=== PATIENT | female | born 1950 ===

== ENCOUNTER 2017-03-31 12:53 | Outpatient (RCR) | payer MEDICARE ==
[2017-01-20 11:49] VITALS: BP 118/77
[2017-02-23 15:45] VITALS: BP 118/71
[~2017-03-31 12:53] MED LIST: OMALIZUMAB 150 MG SVD SQ ONE
[2017-03-31 12:57] VITALS: BP 117/85
== END 2017-04-19 ==
LOC: SPU 12:53
PROVIDERS: ATTEND Allergy & Immunology Allergy
DX: J45.50 Severe persistent asthma, uncomplicated (principal)
CPT/HCPCS: 96372; J2357

== ENCOUNTER 2017-06-20 13:00 | Outpatient (RCR) | payer MEDICARE ==
[2017-04-26 13:06] VITALS: BP 108/69
[2017-06-20] MEDS ORDERED: OMALIZUMAB 150 MG SVD SQ ONE ×3 (14:00)
[2017-06-20 14:07] VITALS: BP 106/67
[2017-07-21] MEDS ORDERED: OMALIZUMAB 150 MG SVD SQ ONE ×2 (10:10)
== END 2017-07-21 10:23 | disposition home or self-care (01) ==
LOC: SPU 13:00
PROVIDERS: ATTEND Allergy & Immunology Allergy
DX: J45.50 Severe persistent asthma, uncomplicated (principal)
CPT/HCPCS: 96372; J2357

== ENCOUNTER 2017-07-21 11:57 | Outpatient (RCR) | payer MEDICARE ==
[2017-07-21] MEDS ORDERED: OMALIZUMAB 150 MG SVD SQ ONE ×2 (12:10)
[2017-07-21 13:10] VITALS: BP 121/67
== END 2017-08-12 10:34 | disposition home or self-care (01) ==
LOC: SPU 11:57
PROVIDERS: ATTEND Allergy & Immunology Allergy
DX: J45.50 Severe persistent asthma, uncomplicated (principal)
CPT/HCPCS: 96372; J2357

== ENCOUNTER 2017-10-13 13:10 | Outpatient (RCR) | payer MEDICARE ==
[2017-08-17 12:33] VITALS: BP 112/96
[2017-09-22 10:25] VITALS: BP 101/79
[2017-10-13 13:15] VITALS: BP 102/67
== END 2017-11-15 ==
LOC: SPU 13:10
PROVIDERS: ATTEND Allergy & Immunology Allergy
DX: J45.50 Severe persistent asthma, uncomplicated (principal)
CPT/HCPCS: 96372; J2357

== ENCOUNTER 2018-01-25 10:11 | Outpatient (RCR) | payer MEDICARE ==
[2017-12-30 12:02] VITALS: BP 119/68
[2018-01-25 10:20] VITALS: BP 127/70
[2018-01-25] MEDS ORDERED: OMALIZUMAB 150 MG SVD SQ ONE ×3 (10:25→10:30)
[2018-03-02] MEDS ORDERED: OMALIZUMAB 150 MG SVD SQ ONE ×2 (10:30)
[2018-03-02 11:20] VITALS: BP 120/88
== END 2018-03-02 ==
LOC: SPU 10:11
PROVIDERS: ATTEND Allergy & Immunology Allergy
DX: J45.50 Severe persistent asthma, uncomplicated (principal)
CPT/HCPCS: 96372; J2357

== ENCOUNTER → 2018-03-02 | Outpatient (CLI) | payer MEDICARE ==
--- NOTE | 2018-03-02 16:13 | RADIOLOGY IMAGING REPORT ---
FACILITY: [facility] PATIENT NAME: Maria Guadalupe Azevedo : 1950 MR: [id number] V: [id number] EXAM DATE: ORDERING PHYSICIAN: ELSIE RUIZ TECHNOLOGIST: [place] [facility] [place] Patient: Maria Guadalupe Azevedo : 1950 Visit/Account:[id number] Date of Sevice: 03/02/2018 Exam type: HIPS BILATERAL History: Bilateral hip pain x6 months, right more than left Comparison: None. Findings: Two views of each hip were submitted. There is a sclerotic density projecting over the right femoral neck measuring 2.6 x 1.7 cm with slightly irregular margins. Although this could represent a bone i sland given the clinical history of right hip pain further evaluation with MR may be helpful. No chikis dence of acute fracture or dislocation involving either hip. No significant arthritic change identif ied involving the hip joints. Sclerotic changes are seen along the inferior third of both SI joints likely arthritic in nature IMPRESSION: 1. Atherosclerotic density projecting over the right femoral neck as described above with slightly i rregular margins. Although this could represent a bone island given the clinical history of right hi p pain further evaluation with MR may be helpful Report Dictated By: Latoya Guerrero MD at 03/02/2018 4:08 PM Report E-Signed By: Latoya Guerrero MD at 03/02/2018 4:09 PM WSN:[email or web address]
== END ==
LOC: RAD 14:38
PROVIDERS: ATTEND Family Medicine
DX: M25.551 Pain in right hip (principal); M25.552 Pain in left hip
CPT/HCPCS: 73522

== ENCOUNTER 2018-06-08 13:19 | Outpatient (RCR) | payer MEDICARE ==
[2018-03-31 13:00] VITALS: BP 100/67
[2018-05-02 11:38] VITALS: BP 109/74
[2018-06-08 13:29] VITALS: BP 115/76
== END 2018-06-29 ==
LOC: SPU 13:19
PROVIDERS: ATTEND Allergy & Immunology Allergy
DX: J45.50 Severe persistent asthma, uncomplicated (principal)
CPT/HCPCS: 96372; J2357

== ENCOUNTER 2018-08-04 10:30 | Outpatient (RCR) | payer MEDICARE ==
[2018-07-07 13:52] VITALS: BP 124/82
[2018-08-04 10:57] VITALS: BP 105/69
[2018-09-06] MEDS ORDERED: OMALIZUMAB 75 MG/0.5 ML SQ ONE (11:10)
[2018-09-06] MEDS ORDERED: OMALIZUMAB 150 MG/ML SYRINGE SQ ONE (11:10)
[2018-09-06 11:39] VITALS: BP 109/69
== END 2018-09-13 08:38 | disposition home or self-care (01) ==
LOC: SPU 10:30
PROVIDERS: ATTEND Allergy & Immunology Allergy
DX: J45.50 Severe persistent asthma, uncomplicated (principal)
CPT/HCPCS: 96372; J2357